=== PATIENT | female | born 1995 | race American Indian/Alaskan Native ===

== ENCOUNTER 2017-02-10 16:45 | Emergency (ER) | payer MEDICAID ==
[2017-02-10 17:14] VITALS: BP 101/68
[2017-02-10 18:06] LABS: Basophils % (Auto) 0.6 % (0.0-1.8); Eosinophils % (Auto) 3.1 % (0.0-4.3); Hematocrit 39.1 % (30.3-42.9); Hemoglobin 13.2 gm/dl (10.1-14.3); Mean Corpuscular HGB Conc 34 % (30-34); Mean Corpuscular Hemoglobin 33 pg (28-32); Mean Corpuscular Volume 98 fl (79-97); Platelet Count 263 K/mm3 (140-440); Red Cell Distribution Width 13.5 % (13.2-15.2); White Blood Count 8.4 K/mm3 (4.5-11.0)
--- NOTE | 2017-02-11 00:12 | Emergency Department Report ---
HPI - General Chief Complaint: Vaginal Bleeding - HPI HPI: Room 25 The patient is a 21-year-old female presenting with a chief complaint of vaginal bleeding. The patient states she was told she was 13 weeks and has not had an ultrasound for this yet. The patient states 1 week ago she developed some vaginal spotting but then it became heavier. The patient states she is going to approximate 5-6 pads per day. The patient admits to passing a large amount of blood and blood clots but never any tissue. The patient states the vaginal bleeding began to slow up and she is currently just spotting. The patient complained of low back pain. The patient states she did not come to the hospital or contact her [employer] Location: [see above] Duration: One week Quality: Pain Severity: Moderate Modifying factors: [see above] Context: [see above] Mode of transportation: Unknown ED Past Medical Hx - Past Medical History Previous Medical History?: No - Surgical History Past Surgical History?: Yes Additional Surgical History: x 1 - Family History Family history: no significant - Social History Smoking Status: Current Some Day Smoker - Medications Home Medications: Home Medications Medication Instructions Recorded Confirmed Last Taken Type HYDROcodone/APAP 5-325 [[place] 1 - 2 each PO Q6HR PRN #10 tablet 02/11/17 Unknown Rx 5/325] Ibuprofen [Motrin 800 MG tab] 800 mg PO Q8HR PRN #20 tablet 02/11/17 Unknown Rx ED Review of Systems ROS: Stated complaint: 13 WKS PREG/BLEEDING Other details as noted in HPI Comment: All other systems reviewed and negative Constitutional: denies: chills, fever Eyes: denies: eye pain, eye discharge, vision change ENT: denies: ear pain, throat pain Respiratory: denies: cough, shortness of breath, wheezing Cardiovascular: denies: chest pain, palpitations Endocrine: no symptoms reported Gastrointestinal: denies: abdominal pain Genitourinary: abnormal menses Musculoskeletal: back pain Skin: denies: rash, lesions Neurological: denies: headache, weakness, paresthesias Psychiatric: denies: anxiety, depression Hematological/Lymphatic: denies: easy bleeding, easy bruising Physical Exam - Physical Exam Vital Signs: Vital Signs 02/10/17 17:10 Temperature 98.1 F Pulse Rate 89 Respiratory 20 Rate Blood Pressure 101/68 O2 Sat by Pulse 99 Oximetry Physical Exam: GENERAL: The patient is well-developed well-nourished female lying on stretcher tearful. [] HEENT: Normocephalic. Atraumatic. Extraocular motions are intact. Patient has moist mucous membranes. NECK: Supple. Trachea midline CHEST/LUNGS: Clear to auscultation. There is no respiratory distress noted. HEART/CARDIOVASCULAR: Regular. There is no tachycardia. There is no gallop rub or murmur. ABDOMEN: Abdomen is soft, nontender. Patient has normal bowel sounds. There is no abdominal distention. SKIN: There is no rash. There is no edema. There is no diaphoresis. NEURO: The patient is awake, alert, and oriented. The patient is cooperative. The patient has normal speech MUSCULOSKELETAL: There is no evidence of acute injury. ED Course Vital Signs 02/10/17 17:10 Temperature 98.1 F Pulse Rate 89 Respiratory 20 Rate Blood Pressure 101/68 O2 Sat by Pulse 99 Oximetry ED Medical Decision Making - Lab Data Result diagrams: 02/10/17 17:45 Laboratory Tests 02/10/17 02/10/17 02/10/17 17:45 17:45 17:45 WBC 8.4 RBC 4.00 Hgb 13.2 Hct 39.1 MCV 98 H MCH 33 H MCHC 34 RDW 13.5 Plt Count 263 Lymph % (Auto) 35.6 H Major % (Auto) 6.3 Eos % (Auto) 3.1 Baso % (Auto) 0.6 Lymph # 3.0 Major # 0.5 Eos # 0.3 Baso # 0.0 Seg Neutrophils % 54.4 Seg Neutrophils # 4.6 HCG, Quant < 2 Blood Type O POSITIVE Antibody Screen TNR RENEE Antibody Screen Negative - Radiology Data Radiology results: report reviewed (pelvic ultrasound), image reviewed (pelvic ultrasound) interpreted by me: Pelvic ultrasound (read by radiologist)-no evidence of intrauterine gestation. Complex lesion visualized right adnexa. Do not see significant flow surrounding this lesion with Doppler imaging. Ectopic cannot be entirely excluded although given the lack of increased flow ectopic is felt to be less likely. Recommend correlation with serial beta hCG units and follow-up pelvic ultrasound if clinically indicated. This may represent a large hemorrhagic cyst. Other masses are not excluded. Regardless of the beta hCG units this lesion should be followed up in 6-8 weeks to ensure results. - Differential Diagnosis spontaneous , threatened , ectopic Critical care attestation.: If time is entered above; I have spent that time in minutes in the direct care of this critically ill patient, excluding procedure time. ED Disposition Clinical Impression: Spontaneous , Adnexal mass Disposition: DISCHARGED TO HOME OR SELFCARE Is pt being admited?: No Does the pt Need Aspirin: No Condition: Stable Instructions: Spontaneous Miscarriage (ED) Additional Instructions: Her serum hCG was <2 mIU/mL. Return to the emergency department immediately should you develop worsening symptoms, fever, inability to tolerate food or liquid or any other concerns. Prescriptions: HYDROcodone/APAP 5-325 [[place] 5/325] 1 - 2 each PO Q6HR PRN #10 tablet PRN Reason: Pain Ibuprofen [Motrin 800 MG tab] 800 mg PO Q8HR PRN #20 tablet PRN Reason: Pain Referrals: PRIMARY CARE,MD [Primary Care Provider] - 3-5 Days LAWANDA WALLIS MD [Staff Physician] - 3-5 Days (Dr. Wallis is an [employer]. Please follow up with him for further evaluation of your right adnexal mass if you do not already had an [employer]OR.) your ,[employer] [Other] - 3-5 Days (Please follow up with your [employer] for further evaluation of your right adnexal mass) Time of Disposition: 01:16
--- NOTE | 2017-02-11 00:16 | Ultrasound Report ---
FINAL REPORT PROCEDURE: US TRANSVAGINAL TECHNIQUE: Real-time transvaginal sonography of the uterus, placenta, amniotic fluid, adnexa, and fetus was performed with image documentation. Measurements were obtained to determine age/size. M-mode Doppler was used to document heartbeat. CPT 95295 HISTORY: vaginal bleeding 1 week. History of . COMPARISON: No prior studies are available for comparison. FINDINGS: Uterus measures 7.5 x 3.6 x 4.9 centimeter. There is no evidence of a gestational sac. Small nabothian cysts are visualized. No uterine masses are identified. Minimal nonspecific free fluid is seen in the cul-de-sac. Complex lesion visualized in the right ovary measuring 3.7 centimeters. This shows low signal material as well as a portion which appears anechoic. No significant increased flow seen surrounding this lesion. Right ovary measures 5.0 x 3.9 x 4.3 centimeter. Left ovary is unremarkable measuring 3.6 x 2.2 x 2.2 centimeter. IMPRESSION: No evidence of intrauterine gestation. Complex lesion visualized right adnexa. As indicated above I do not see significant flow surrounding this lesion with Doppler imaging. Ectopic cannot be entirely excluded although given the lack of increased flow ectopic is felt to be less likely. Recommend correlation with serial beta HCG units and follow-up pelvic ultrasound if clinically indicated. This may represent a large hemorrhagic cyst. Other masses are not excluded. Regardless of the beta HCG units this lesion should be followed-up 6-8 weeks to ensure it resolves. OBGYN consultation is suggested.
--- NOTE | 2017-02-11 00:22 | Ultrasound Report ---
FINAL REPORT PROCEDURE: US PELVIC COMPLETE TECHNIQUE: Real-time transabdominal sonography of the uterus, placenta, amniotic fluid, adnexa, and fetus was performed with image documentation. Measurements were obtained to determine age/size. M-mode Doppler was used to document heartbeat. CPT 39792 HISTORY: vaginal bleeding 1 week. History of . COMPARISON: No prior studies are available for comparison. FINDINGS: There is no evidence of intrauterine . No uterine masses are seen. The uterus measures 7.5 x 3.6 x 4.9 centimeter. Minimal nonspecific free fluid is seen in the cul-de-sac. Small nabothian cysts appear to be visualized. Hypoechoic nodular density is suboptimally visualized in the right ovary. This measures 3.1 x 1.8 x 2.5 centimeter. Overall the right ovary measures 5.0 x 3.9 x 4.3 centimeter. Left ovary is unremarkable measuring 3.8 by 2.0 x 2.6 centimeter. No abnormal adnexal masses are seen in the left IMPRESSION: Hypoechoic nodular density seen right ovary. Transvaginal OB ultrasound is to follow. No evidence of intrauterine . Ectopic cannot be excluded. Minimal nonspecific free fluid seen in the cul-de-sac. Left ovary is unremarkable.
== END 2017-02-11 01:20 | disposition home or self-care (01) ==
LOC: ED 16:45
DX: O03.9 Complete or unspecified spontaneous abortion without complication (principal); O26.891 Other specified pregnancy related conditions, first trimester; R19.09 Other intra-abdominal and pelvic swelling, mass and lump; O99.331 Smoking (tobacco) complicating pregnancy, first trimester; Z3A.13 13 weeks gestation of pregnancy
CPT/HCPCS: 36415; 76830; 76856; 84702; 85025; 86850; 86900; 86901